=== PATIENT | male | born 1930 | race Caucasian/White ===

== ENCOUNTER 2016-04-27 10:48 | Observation (INO) | payer OTHER, BC ==
[~2016-04-27] VITALS: Ht 167.6 cm; Wt 63.6 kg
[~2016-04-27 10:48] MED LIST: Feosol PO; Hydrodiuril,Oretic,E PO; K-DUR20 MEQ PO; Lovenox SC; Proscar PO; RAPAFLO8 MG PO; REGLAN10 MG PO; Tenormin PO; Vicodin,Norco 5/325 PO; [UNRECOGNIZED DRUG - REMARK] TP; celeBREX PO
[2016-04-27 11:39] LABS: MCH 30.4 PG (29.0-34.0); MCHC 33.3 G/DL (30.0-36.0); MCV 91.1 FL (86-99); MEAN PLAT.VOLUME 9.4 uM^3 (9.0-12.4); PLATELET COUNT 192 K/uL (156-360); RBC DIS.WIDTH-CV 12.9 % (11.8-14.6); RBC DIS.WIDTH-SD 43.5 % (39-53); RED BLOOD COUNT 4.61 M/uL (4.00-5.50); WHITE BLOOD COUNT 7.9 K/uL (4.1-10.2)
[2016-04-27 11:49] LABS: CHLORIDE 99 mEq/L (99-109); POTASSIUM 3.5 mEq/L (3.7-5.4); SODIUM 139 mEq/L (136-147)
[2016-04-27 11:51] LABS: GLUCOSE 117 mg/dL (70-99)
[2016-04-27 11:53] LABS: ANION GAP 10 MEQ/L (2-14)
[2016-04-27 11:55] LABS: GFR ESTIMATE (CALCULATED) 38 mL/min/
[2016-04-27 11:56] LABS: UREA NITROGEN (BUN) 25 mg/dL (9-23)
[2016-04-27 13:44] LABS: TROP-I INTERPRETATION NEGATIVE; TROPONIN-I 0.01 ng/mL (0.0-0.30)
[2016-04-27] MEDS ORDERED: LUMIGAN 0.50 DROP/22 RIGHT EYE (14:56)
[2016-04-27] MEDS ORDERED: FLOMAX0.4 MG PO (14:57)
[2016-04-27] MEDS ORDERED: PROSCAR5 MG PO (14:58)
[2016-04-27] MEDS ORDERED: MAXZIDE 75/501 EACH PO (14:58)
[2016-04-27] MEDS ORDERED: LO-DOSE ASPIRIN81 M2 PO (14:59)
[2016-04-27 16:14] LABS: ADD MIUA? YES; BILIRUBIN NEGATIVE; BLOOD NEGATIVE; COLOR YELLOW ((YELLOW)); GLUCOSE (STRIP) NEGATIVE; KETONES NEGATIVE; LEUKOCYTES TRACE; NITRITE NEGATIVE; PROTEIN (STRIP) 30; SPECIFIC GRAVITY 1.016 (1.000-1.030); UROBILINOGEN 0.2 MG/DL (0.2-1.0)
[2016-04-27 16:22] LABS: BACTERIA RARE /HPF; EPITHELIAL CELLS RARE /HPF; MUCUS TRACE /LPF; RED BLOOD CELLS 0-5 /HPF (0-5)
[2016-04-27 17:12] VITALS: BP 156/67
[2016-04-27 19:47] VITALS: BP 128/65
[2016-04-27 20:31] LABS: TROP-I INTERPRETATION NEGATIVE; TROPONIN-I 0.02 ng/mL (0.0-0.30)
[2016-04-28 00:03] VITALS: BP 154/70
[2016-04-28 01:08] LABS: TROP-I INTERPRETATION NEGATIVE; TROPONIN-I 0.02 ng/mL (0.0-0.30)
[2016-04-28 03:42] VITALS: BP 146/69
[2016-04-28 05:27] LABS: HEMATOCRIT 37.4 % (38.0-50.0); MCH 30.6 PG (29.0-34.0); MCHC 33.2 G/DL (30.0-36.0); MCV 92.3 FL (86-99); MEAN PLAT.VOLUME 10.5 uM^3 (9.0-12.4); PLATELET COUNT 178 K/uL (156-360); RBC DIS.WIDTH-SD 44.5 % (39-53); RED BLOOD COUNT 4.05 M/uL (4.00-5.50); WHITE BLOOD COUNT 6.6 K/uL (4.1-10.2)
[2016-04-28 05:41] LABS: ANION GAP 11 MEQ/L (2-14); CHLORIDE 100 MEQ/L (99-109); POTASSIUM 3.4 MEQ/L (3.7-5.4); SAMPLE HEMOLYSIS CHECK 0; SAMPLE ICTERIC CHECK 0; SAMPLE LIPEMIA CHECK 0; SODIUM 139 MEQ/L (136-147); UREA NITROGEN (BUN) 24 mg/dL (9-23)
[2016-04-28 05:43] LABS: GFR ESTIMATE (CALCULATED) 56 mL/min/; GLUCOSE 74 mg/dL (70-99)
[2016-04-28 07:45] VITALS: BP 144/67
[2016-04-28] MEDS ORDERED: CIPRO250 MG PO (11:14)
[2016-04-28] MEDS ORDERED: ATENOLOL25 MG PO (11:15)
[2016-04-28 11:43] VITALS: BP 125/61
== END 2016-04-28 13:25 | disposition home or self-care (01) ==
LOC: EME 10:48 → EDOF 15:25 → 5WEST 17:01
PROVIDERS: Emergency Medicine; Internal Medicine
DX: I95.1 Orthostatic hypotension (principal); I11.9 Hypertensive heart disease without heart failure; S00.33XA Contusion of nose, initial encounter; W19.XXXA Unspecified fall, initial encounter; Y92.002 Bathroom of unspecified non-institutional (private) residence as the place of occurrence of the external cause; N28.9 Disorder of kidney and ureter, unspecified; I45.10 Unspecified right bundle-branch block; N40.0 Benign prostatic hyperplasia without lower urinary tract symptoms; Z96.642 Presence of left artificial hip joint
CPT/HCPCS: 70160; 70450; 71020; 80048; 81003; 84484; 85027; 87077; 87086; 87186; 93005; 99281; 99285; G0378; G8978 GP CI; G8979 GP CH; G8987 GO CI; G8988 GO CH; J0696; J1644; J7030; J7050